=== PATIENT | male | born 1955 | race Caucasian/White ===

== ENCOUNTER 2016-09-21 08:11 | Day surgery (SDC) | payer BC ==
--- NOTE | 2016-08-30 09:07 | HP ---
PREOPERATIVE HISTORY AND PHYSICAL: DATE OF SURGERY/ADMISSION: 09/21/16 DATE OF OFFICE VISIT: 08/25/16 ATTENDING SURGEON: Jeane Bae MD. PROCEDURE: Right wrist excision mass. CHIEF COMPLAINT: Numbness and tingling ulnar distribution, right upper extremity. HISTORY OF PRESENT ILLNESS: This is a 61-year-old male who complains of numbness and tingling in his right hand, specifically in the small and ring fingers for the past 4 weeks. He denies any injury, but he does have some associated pain that radiates up his arm. He is not complaining of any elbow pain. He had x-rays taken which showed no bony abnormalities but a soft tissue mass at the wrist on the ulnar aspect. Subsequent MRI showed findings consistent with a ganglion cyst compressing the ulnar nerve. Dr. Bae is recommending surgical intervention at this time for removal of the ganglion cyst and the patient has consented to proceed. PAST MEDICAL HISTORY: Unremarkable. PAST SURGICAL HISTORY: Right triceps repair in 1997. CURRENT MEDICATIONS: 1. Advil 200 mg p.r.n. 2. Aspirin low dose 81 mg 1 tab daily. 3. Folic acid daily. 4. Generic Lipitor 10 mg once daily. 5. Multivitamins. 6. Osteo Bi-Flex daily. 7. Piroxicam 20 mg 1 tab daily. 8. Rogaine. 9. Vitamin D 5000 international units daily. ALLERGIES: No known drug allergies. FAMILY MEDICAL HISTORY: Significant for diabetes and hypertension. 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 He denies tobacco use and recreational drug use. He does admit to alcohol use on a regular basis, typically 1 to 2 glasses of wine per day. REVIEW OF SYSTEMS: General: Negative for fevers, chills or night sweats. No known anesthesia problems. HEENT: Negative for headache, lightheadedness or syncopal episodes. Integumentary: Negative for abrasions, lesions, or open wounds. Cardiothoracic: Negative for hypertension, chest pain, palpitations or edema. Pulmonary: Negative for shortness of breath with exertion, chronic cough, COPD. GI: Positive for mild GERD. Negative for nausea, vomiting, diarrhea, or constipation. : Negative for nocturia, urinary frequency, urgency, history of UTIs or kidney problems. Musculoskeletal: Positive for current complaint. Negative for chronic or intermittent back pain or history of fractures. Neurological: Negative for history of seizure, stroke, or epilepsy. Endocrine: Negative for diabetes or thyroid issues. Hematologic: Negative for easy bruising, anemia, excessive bleeding, or history of DVT. Infectious Disease: Negative for history of MRSA, hepatitis C, or HIV. The patient does have a history of hepatitis B. PHYSICAL EXAMINATION GENERAL: Well-developed, well-nourished 61-year-old male, in no acute distress. VITAL SIGNS: Height 5 feet 9 inches, weight 158 pounds, blood pressure 120/84, pulse rate 78. HEENT: Normocephalic, atraumatic. Pupils are equal, round, and reactive to light and accommodation. Extraocular movements are intact. NECK: Supple. No palpable lymph nodes. Throat is clear. PULMONARY: Lungs are clear to auscultation bilaterally. No wheezes, rales, or rhonchi. CARDIOVASCULAR: Regular rate and rhythm. S1, S2. No murmurs, rubs or gallops. No edema. ABDOMEN: Positive bowel sounds, soft, and nontender. NEUROLOGICAL: Alert and oriented x3. Cranial nerves II through XII are intact. Sensation is intact to light touch. PERIPHERAL VASCULAR: 2+ radial and ulnar pulses. Negative Alejandro's test. MUSCULOSKELETAL: On exam of the right hand, he has some interosseous wasting. There is marked weakness as he tries to resist the finger abduction. He has a palpable mass at the distal aspect of his ulnar nerve just proximal to the wrist crease. He has tenderness there as well. Negative Tinel's sign of the ulnar nerve at the elbow. He has full elbow motion with no exacerbation of symptoms. He has normal wrist motion. He has marked decreased sensation in the ulnar nerve distribution, right hand. IMAGING STUDIES: X-ray of the right wrist show no bony findings but presence of the soft tissue mass on the ulnar volar aspect of the wrist. MRI of the wrist shows findings consistent with the ganglion cyst compressing the ulnar nerve at the right wrist. IMPRESSION: Ganglion cyst, right wrist; compressing ulnar nerve. PLAN: The patient is scheduled to undergo a right wrist excision mass with Dr. Bae on 09/21/16. He will return to the office 10 to 14 days postop for followup and suture removal. Medication for postoperative pain will be prescribed on the day of surgery. JOSE CARRANZA [id number]/[facility] #: [id number] [facility] HOSPITALStephenie
[~2016-09-21 08:11] MED LIST: Buffered Lidocaine 0.9% SYRIN* 5 ML/SYR SYRINGE INTRADERM ONE
[2016-09-21] MEDS ORDERED: Buffered Lidocaine 0.9% SYRIN* 5 ML/SYR SYRINGE ONE (08:21)
[2016-09-21] MEDS ORDERED: Lidocaine 1% INJ* 10 MG/ML 30 ML SDV ONE (09:39)
[2016-09-21] MEDS ORDERED: Propofol* 10 MG/ML 20 ML BTL IV PUSH ONE (10:01)
[2016-09-21] MEDS ORDERED: Lidocaine 2% PF * 5 ML VIAL ONE (10:01)
[2016-09-21 11:24] VITALS: BP 144/88
--- NOTE | 2016-09-22 02:37 | OP ---
DATE OF OPERATION: 09/21/16 [facility] DATE OF : 59 SURGEON: Jeane Bae MD CHOREOGRAPHY DIRECTOR: JOSE Guerra. ANESTHESIOLOGIST: Raymond Carter DO ANESTHESIA: Local MAC. PRE-OP DIAGNOSIS: Right wrist mass. POST-OP DIAGNOSIS: Right wrist mass. OPERATIVE PROCEDURE: Removal of right wrist mass. ESTIMATED BLOOD LOSS: Zero. TOURNIQUET TIME: About 25 minutes. INDICATION FOR PROCEDURE: Hakeem is a 61-year-old man who complains of numbness and tingling in the ulnar nerve distribution of his right hand. MRI shows a large ganglion cyst compressing the ulnar nerve. He presents for removal of mass of the right wrist. DESCRIPTION OF PROCEDURE: The patient was brought to the operating room, was given a sedation anesthetic and a local infiltration with 10 cc of 1% plain lidocaine on the ulnar-volar aspect of the right wrist. The skin of his right hand and forearm was prepped and draped in the usual sterile fashion. The hand and forearm were exsanguinated and the tourniquet elevated to 250 mmHg. A longitudinal incision with a slight zig zag at the wrist crease was made overlying the mass. We dissected bluntly through the subcutaneous tissue. The flexor carpi ulnaris muscle and tendon were retracted radially by the surgical specialist, Cynthia Gutierrez. There was a large ganglion cyst which was compressing the ulnar nerve and was encasing the nerve and artery. It was carefully dissected away from the nerve and artery and then traced with its stalk down to the pisotriquetral joint. The area of the joint where the cyst emanated from was cauterized with a Bovie. The wound was irrigated and skin edges were reapproximated with 4-0 nylon suture. The wound was dressed with Xeroform, 4x4, Webril, and an Dov wrap. The patient tolerated the procedure well and was brought to the recovery room in good condition. [id number]/[facility] #: [id number] [facility] HOSPITALStephenie
== END 2016-09-21 11:20 | disposition home or self-care (01) ==
LOC: OREAST 08:11
PROVIDERS: ATTEND Orthopaedic Surgery
DX: M67.431 Ganglion, right wrist (principal); G56.21 Lesion of ulnar nerve, right upper limb
CPT/HCPCS: 88304; J2001; J2704